=== PATIENT | male | born 1990 | race Two or more races ===

== ENCOUNTER 2016-09-24 19:00 | Inpatient (IN) | payer MEDICAID ==
[2016-09-24 19:46] VITALS: BP 99/66
[2016-09-24] MEDS ORDERED: Maalox 30 mL Cup PO PRN (20:05)
[2016-09-24] MEDS ORDERED: Albuterol Nebulizer 2.5mg/3mL IH PRN (20:05)
[2016-09-24] MEDS ORDERED: guaiFENesin 200 MG/10 ML UDC PO PRN (20:07)
[2016-09-24] MEDS: Sodium Chloride 0.9% 1,000 ML IV SCH (20:30)
[2016-09-24 20:31] LABS: HEMOGLOBIN 12.7 gm/dL (13.2-17.3); MEAN CELL VOLUME 87.6 fl (80-99); MEAN CORPUSCULAR HEMOGLOBIN 30.8 pg (26.0-30.0); MEAN CORPUSCULAR HGB CONC 35.1 pg (28.0-36.0); MEAN PLATELET VOLUME 7.9 fl; PLATELET COUNT 206 Th/cmm (150-400); RED BLOOD COUNT 4.11 Mil/cmm (4.30-5.70); RED CELL DISTRIBUTION WIDTH 12.4 % (11.5-20.0)
[2016-09-24] MEDS: Levofloxacin 500mg/100mL 500 MG/100 ML BAG IV SCH (20:33)
[2016-09-24 20:50] LABS: ALB/GLOB RATIO 1.3 (1.0-1.8); ALKALINE PHOSPHATASE 66 U/L (34-104); BILIRUBIN,TOTAL 0.6 mg/dL (0.3-1.0); BUN - UREA NITROGEN 17 mg/dL (7-25); BUN/CREATININE RATIO 21.3; CALCIUM SERUM 7.8 mg/dL (8.6-10.3); CARBON DIOXIDE 20.3 mEq/L (21.0-31.0); CHLORIDE 106 mEq/L (98-107); CREATININE - SERUM 0.8 mg/dL (0.7-1.3); GLUCOSE 166 mg/dL (70-105); MAGNESIUM 1.8 mg/dL (1.9-2.7); PHOSPHOROUS 2.7 mg/dL (2.5-5.0); POTASSIUM SERUM 3.3 mEq/L (3.5-5.1); SGOT 14 U/L (13-39); SGPT/ALT 15 U/L (7-52); SODIUM SERUM 133 mEq/L (136-145)
[2016-09-24 21:00] LABS: WHITE BLOOD COUNT 12.2 Th/cmm (4.8-10.8)
[2016-09-24 21:16] LABS: BAND NEUTROPHILE 2 % (0-10); EOSINOPHIL 2 % (0-5); NEUTROPHILS 62 % (40-80); PLATELET ESTIMATE ADEQUATE (NORMAL); PLATELET MORPHOLOGY NORMAL (NORMAL); TOTAL CELLS COUNTED 100
[2016-09-24 21:25] LABS: TSH 1.75 uIU/ml (0.34-5.60)
[2016-09-24] MEDS ORDERED: GLUCAGON HCl 1 MG KIT IM PRN (23:11)
[2016-09-24] MEDS ORDERED: Dextrose 50% 50 mL Abboject IVP PRN (23:11)
[2016-09-24] MEDS ORDERED: Potassium Chloride 40 MEQ, Lidocaine 1% 20mL Vial 25 MG in Sodium Chloride 0.9% 250 ML IV ONE (23:42)
[2016-09-24 23:44] LABS: URINE COLOR YELLOW; URINE GLUCOSE (UA) 500 mg/dL (NEGATIVE)
[2016-09-24 23:45] LABS: URINE BILIRUBIN MODERATE (NEGATIVE); URINE BLOOD NEGATIVE (NEGATIVE); URINE KETONE >=80 mg/dL (NEGATIVE); URINE PROTEIN 30 mg/dL (NEGATIVE); URINE UROBILINOGEN 0.2 E.U./dL (0.2 - 1.0)
[2016-09-24 23:46] LABS: URINE BACTERIA NONE SEEN /hpf (NONE SEEN); URINE EPITHELIAL CELLS NONE SEEN /lpf (FEW); URINE RBC NONE SEEN /hpf (0-5); URINE WBC NONE SEEN /hpf (0-5)
[2016-09-25] MEDS ORDERED: KCL 20mEq/100mL Premix 40 MEQ/200 ML PIGGYBACK IV ONE (01:07)
[2016-09-25 04:49] LABS: % BASOPHILS 0.5 % (0.0-2.0); % EOSINOPHILS 1.8 % (0.0-5.0); % LYMPHOCYTES 19.3 % (20.0-50.0); % MONOCYTES 3.6 % (2.0-10.0); % NEUTROPHILS 74.8 % (40.0-80.0); HEMATOCRIT 39.3 % (39.0-49.0); HEMOGLOBIN 13.6 gm/dL (13.2-17.3); MEAN CELL VOLUME 88.4 fl (80-99); MEAN CORPUSCULAR HEMOGLOBIN 30.5 pg (26.0-30.0); MEAN CORPUSCULAR HGB CONC 34.5 pg (28.0-36.0); MEAN PLATELET VOLUME 7.6 fl; NEUTROPHILE ABSOLUTE 8.7 Th/cmm (1.8-8.0); PLATELET COUNT 226 Th/cmm (150-400); RED BLOOD COUNT 4.45 Mil/cmm (4.30-5.70); RED CELL DISTRIBUTION WIDTH 12.4 % (11.5-20.0); WHITE BLOOD COUNT 11.6 Th/cmm (4.8-10.8)
[2016-09-25 05:14] LABS: ANION GAP 20.1 (7.0-16.0); BUN - UREA NITROGEN 18 mg/dL (7-25); CALCIUM SERUM 8.6 mg/dL (8.6-10.3); CARBON DIOXIDE 13.5 mEq/L (21.0-31.0); CHLORIDE 100 mEq/L (98-107); CREATININE - SERUM 0.9 mg/dL (0.7-1.3); GLUCOSE 449 mg/dL (70-105); MAGNESIUM 1.8 mg/dL (1.9-2.7); POTASSIUM SERUM 4.6 mEq/L (3.5-5.1); SODIUM SERUM 129 mEq/L (136-145)
[2016-09-25] MEDS: Sodium Chloride 0.9% 1,000 ML IV SCH ×3 (05:29→20:40)
[2016-09-25] MEDS: INSULIN ASPART, RECOMBINANT 100 UNITS/ML SUBQ SCH ×5 (05:37→20:29)
[2016-09-25] MEDS ORDERED: INSULIN 70/30 100 UNITS/ML SUBQ SCH (07:30)
--- NOTE | 2016-09-25 09:26 | Diagnostic Imaging Report ---
CHEST X-RAY: AP view INDICATION: Pneumonia COMPARISON: None FINDINGS: There is no focal consolidation or pleural effusions The heart is normal in size. The osseous structures demonstrate no acute abnormalities. IMPRESSION: No acute cardiopulmonary disease.
--- NOTE | 2016-09-25 12:08 | Internal Medicine Prog Note ---
Internal Medicine Subjective - Subjective Service Date: 09/25/16 ([id number]) Internal Medicine Objective - Results Result Diagrams: 09/25/16 04:40 09/25/16 04:40 Recent Labs: Laboratory Last Values WBC 11.6 Th/cmm (4.8-10.8) H 09/25/16 04:40 RBC 4.45 Mil/cmm (4.30-5.70) 09/25/16 04:40 Hgb 13.6 gm/dL (13.2-17.3) 09/25/16 04:40 Hct 39.3 % (39.0-49.0) 09/25/16 04:40 MCV 88.4 fl (80-99) 09/25/16 04:40 MCH 30.5 pg (26.0-30.0) H 09/25/16 04:40 MCHC Differential 34.5 pg (28.0-36.0) 09/25/16 04:40 RDW 12.4 % (11.5-20.0) 09/25/16 04:40 Plt Count 226 Th/cmm (150-400) 09/25/16 04:40 MPV 7.6 fl 09/25/16 04:40 Neutrophils % 74.8 % (40.0-80.0) 09/25/16 04:40 Band Neutrophils % 2 % (0-10) 09/24/16 20:19 Lymphocytes % 19.3 % (20.0-50.0) L 09/25/16 04:40 Monocytes % 3.6 % (2.0-10.0) 09/25/16 04:40 Eosinophils % 1.8 % (0.0-5.0) 09/25/16 04:40 Basophils % 0.5 % (0.0-2.0) 09/25/16 04:40 Neutrophils (Manual) 62 % (40-80) 09/24/16 20:19 Lymphocytes 31 % (20-50) 09/24/16 20:19 Monocytes 3 % (2-10) 09/24/16 20:19 Eosinophils 2 % (0-5) 09/24/16 20:19 Platelet Estimate ADEQUATE (NORMAL) 09/24/16 20:19 Platelet Morphology NORMAL (NORMAL) 09/24/16 20:19 RBC Morph Micro Appear NORMAL (NORMAL) 09/24/16 20:19 Sodium 129 mEq/L (136-145) L 09/25/16 04:40 Potassium 4.6 mEq/L (3.5-5.1) 09/25/16 04:40 Chloride 100 mEq/L (98-107) 09/25/16 04:40 Carbon Dioxide 13.5 mEq/L (21.0-31.0) L 09/25/16 04:40 Anion Gap 20.1 (7.0-16.0) H 09/25/16 04:40 BUN 18 mg/dL (7-25) 09/25/16 04:40 Creatinine 0.9 mg/dL (0.7-1.3) 09/25/16 04:40 Est GFR ( Amer) > 60.0 ml/min (>90) 09/25/16 04:40 Est GFR (Non-Af Amer) > 60.0 ml/min 09/25/16 04:40 BUN/Creatinine Ratio 20.0 09/25/16 04:40 Glucose 449 mg/dL (70-105) H 09/25/16 04:40 POC Glucose 332 MG/DL (70 - 105) H 09/25/16 11:15 Calcium 8.6 mg/dL (8.6-10.3) 09/25/16 04:40 Phosphorus 2.7 mg/dL (2.5-5.0) 09/24/16 20:19 Magnesium 1.8 mg/dL (1.9-2.7) L 09/25/16 04:40 Total Bilirubin 0.6 mg/dL (0.3-1.0) 09/24/16 20:19 AST 14 U/L (13-39) 09/24/16 20:19 ALT 15 U/L (7-52) 09/24/16 20:19 Alkaline Phosphatase 66 U/L (34-104) 09/24/16 20:19 Ammonia 34 umol/L (16-53) 09/24/16 20:19 Total Protein 5.6 gm/dL (6.0-8.3) L 09/24/16 20:19 Albumin 3.2 gm/dL (4.2-5.5) L 09/24/16 20:19 Globulin 2.4 gm/dL 09/24/16 20:19 Albumin/Globulin Ratio 1.3 (1.0-1.8) 09/24/16 20:19 TSH 1.75 uIU/ml (0.34-5.60) 09/24/16 20:19 Urine Source CLEAN C 09/24/16 21:45 Urine Color YELLOW 09/24/16 21:45 Urine Clarity CLEAR (CLEAR) 09/24/16 21:45 Urine pH 6.0 09/24/16 21:45 Ur Specific [place] 1.030 (1.005-1.030) 09/24/16 21:45 Urine Protein 30 mg/dL (NEGATIVE) H 09/24/16 21:45 Urine Glucose (UA) 500 mg/dL (NEGATIVE) H 09/24/16 21:45 Urine Ketones >=80 mg/dL (NEGATIVE) H 09/24/16 21:45 Urine Blood NEGATIVE (NEGATIVE) 09/24/16 21:45 Urine Nitrate NEGATIVE (NEGATIVE) 09/24/16 21:45 Urine Bilirubin MODERATE (NEGATIVE) H 09/24/16 21:45 Urine Urobilinogen 0.2 E.U./dL (0.2 - 1.0) 09/24/16 21:45 Ur Leukocyte Esterase NEGATIVE (NEGATIVE) 09/24/16 21:45 Urine RBC NONE SEEN /hpf (0-5) 09/24/16 21:45 Urine WBC NONE SEEN /hpf (0-5) 09/24/16 21:45 Ur Epithelial Cells NONE SEEN /lpf (FEW) 09/24/16 21:45 Urine Bacteria NONE SEEN /hpf (NONE SEEN) 09/24/16 21:45 - Physical Exam Vitals and I&O: Vital Signs Temp 98.5 F 09/25/16 08:00 Pulse 83 09/25/16 09:00 Resp 12 09/25/16 09:00 BP 90/50 09/25/16 09:00 Pulse Ox 97 09/25/16 09:00 Intake & Output 09/24/16 09/25/16 09/25/16 18:59 06:59 18:59 Intake Total 1900 200 Output Total 1400 800 Balance 500 -600 Weight (lbs) 115 lb Intake: Intake, IV Amount 1100 Levofloxacin 500mg/100mL 100 500 mg In 100 ml @ 100 mls/hr IV Q24HR [facility] Rx#: [id number] Sodium Chloride 0.9% 1, 1000 000 ml @ 125 mls/hr IV . Q8H [facility] Rx#:[id number] Oral 800 200 Output: Urine 1400 800 Other: # Voids 4 0 # Bowel Movements 0 Stool Characteristics Soft Formed Active Medications: Current Medications Acetaminophen (Tylenol) 650 mg PO Q4HR PRN PRN Reason: Pain or Fever >101 Stop: 11/23/16 20:06 Al Hydrox/Mg Hydrox/Simethicone (Maalox) 30 ml PO Q6HR PRN PRN Reason: Constipation Stop: 11/23/16 20:04 Albuterol Sulfate (Albuterol 2.5mg/3ml Neb Ud) 2.5 mg IH Q2HR PRN PRN Reason: Shortness of Breath or Wheeze Stop: 11/23/16 20:04 Dextrose (D50w) 50 ml IVP PRN PRN PRN Reason: Blood Glucose less than 70 Stop: 11/23/16 23:10 Dextrose (Glutose 40%) 18.75 gm PO PRN PRN PRN Reason: Blood Glucose less than 70 Stop: 11/23/16 23:10 Famotidine (Pepcid) 20 mg IVP Q12H [facility] Stop: 11/23/16 20:14 Last Admin: 09/25/16 08:36 Dose: 20 mg Glucagon (Glucagen) 1 mg IM PRN PRN PRN Reason: Blood Glucose less than 70 Stop: 11/23/16 23:10 Guaifenesin (Robitussin) 200 mg PO Q4HR PRN PRN Reason: Cough or Congestion Stop: 11/23/16 20:06 Heparin Sodium (Porcine) (Heparin) 5,000 units SUBQ Q12HR [facility] Stop: 11/23/16 20:59 Last Admin: 09/25/16 08:42 Dose: Not Given Levofloxacin (Levaquin Pb) 500 mg in 100 mls @ 100 mls/hr IV Q24HR [facility] Stop: 11/23/16 20:59 Last Infusion: 09/24/16 21:30 Dose: Infused Sodium Chloride (Nacl 0.9%) 1,000 mls @ 125 mls/hr IV .Q8H [facility] Stop: 11/23/16 20:14 Last Admin: 09/25/16 05:29 Dose: 125 mls/hr Insulin Aspart (Novolog) 0 units SUBQ ACHS [facility] PRN Reason: Protocol Stop: 11/24/16 05:59 Last Admin: 09/25/16 08:28 Dose: Not Given Insulin Human Isoph/Insulin Regular (Novolin 70/30) 10 units SUBQ BIDAC [facility]AVIAN PRN Reason: Protocol Stop: 11/24/16 07:29 Last Admin: 09/25/16 08:32 Dose: 10 units Ondansetron HCl (Zofran) 4 mg IV Q8H PRN PRN Reason: Nausea / Vomiting Stop: 11/23/16 20:06 Zolpidem Tartrate (Ambien) 10 mg PO HS PRN PRN Reason: Insomnia Stop: 11/23/16 20:04 Internal Medicine Assmt/Plan - Assessment Assessment: DKA CHEST PAIN HYPONATREMIA
[2016-09-25] MEDS ORDERED: Mag Sulfate 2gm/50mL Premix 2 GM/50 ML BAG IV ONE (13:01)
--- NOTE | 2016-09-25 13:08 | Admit Criteria Form ---
Admit Criteria Forms - Admit Criteria Diagnosis: DIABETES Clinical Indications for Admission to Inpatient Care (Place 'X' for any and all applicable criteria): Admission is indicated by presence of ALL (if I & II) or ANY ONE (if III or IV) of the following (1)(2)(3)(4): [X ]I. Diabetes is uncontrolled as indicated by ANY ONE of the following: [ ]a) Diabetic ketoacidosis as indicated by ALL of the following (8): [ ]i) Hyperglycemia (eg, plasma glucose greater than 200 mg/ dL (11.1 mmol/L)) [ ]ii) Acidosis (eg, arterial pH less than 7.30, serum bicarbonate level less than 15 mEq/L (mmol/L)) [ ]iii) Moderate ketonuria or ketonemia [ ]b) Hyperglycemic hyperosmolar state as indicated by ALL of the following(9)(10): [ ]i) Neurologic dysfunction (eg, stupor, coma, hemiparesis , seizure)(13) [ ]ii) Plasma glucose greater than 600 mg/dL (33.3 mmol/L) [ ]iii) Serum osmolality greater than 320 mOsm/kg (mmol/kg) [X ]c) Severe signs or symptoms secondary to hyperglycemia indicated by ANY ONE of the following: [ ]i) Altered mental status(10) [ ]ii) Significant hypovolemia or dehydration [ ]iii) Intractable nausea or vomiting [ ]iv) Unexplained fever or severe infection [X]v) Severe electrolyte abnormality (eg, hypokalemia, hyperkalemia, hypernatremia) [X ]II. Management at other levels of care (Also use Diabetes: Observation Care as appropriate) is not feasible because of ANY ONE of the following: [ ]a) Condition was not adequately corrected with treatment at other levels of care. [X]b) Treatment at other levels of care is not appropriate because of condition severity (eg, hyperosmolar coma). [ ]III. Contraindications and/or Inappropriate clinical situations for Observational Care in patients with Diabetes, when ANY ONE of the following is required: [ ]a) Patient require specific diagnostic workup or therapeutic intervention 22 [ ]b) Patient with abnormal vital signs or altered mental status 23 [ ]IV. General contraindications and/or Inappropriate clinical situations for Observational Care in patients with Diabetes, when ANY ONE of the following is required: [ ]a) Prediction of prolongation of LOS based on ANY ONE of the following may be considered as a contraindication for observational care 2, 3, 4, 5, 6, 7, 8, 9, 10, 11 [ ]i) Age > 65 yrs. [ ]ii) Patient arriving by ambulance [ ]iii) Patient with high acuity [ ]iv) Patient requiring vital sign monitoring [ ]v) Patient on IV medication [ ]b) Systolic blood pressures 180mmHg 3,12 [ ]c) Patient with altered mental status including delirium and other alteration of consciousness, (3) [ ]d) Patient whose discharge disposition will be to a snf home or rehabilitation home should not be managed in Emergency Department Observation Unit. CMS rule requires 3 days hospital stay before such placement.3,13 [ ]e) Patient with failure to thrive due to broad array of etiologies 3,16,17 [ ]f) Inability to ambulate 3,14 Extended stay beyond goal length of stay may be needed for(3)(20): [ ]a) Treatment of precipitating causes [ ]b) Development of hypoglycemia [ ]c) Complications of treatment [ ]d) Complications of decompensated diabetes (eg, acute gastric dilatation, persistent metabolic or neurologic derangement) [ ]e) Active Comorbidities [ ]f) Older patients( 65 years or older) The original [facility] content created by [employer] has been revised. The portions of the content which have been revised are identified through the use of italic text or in bold,and [facility] has neither reviewed nor approved the modified material. All other unmodified content is copyright [facility]. Please see references footnoted in the original [facility] edition 2016 Admit Criteria Met?: Yes
--- NOTE | 2016-09-25 15:28 | History & Physical ---
CHIEF COMPLAINT: Chest pain and elevated glucose level. HISTORY OF PRESENT ILLNESS: This is a 26-year-old male who was a direct admission from [facility]. According to the patient, he has a 1-day history of chest pain associated with sore throat. Chest pain is nonradiating and is more centered. The patient states that he had a bit of shortness of breath and also when the patient checked his blood sugar at home, it did not give a specific number, just said it was high. The patient states that he checks his glucose levels 3 times a day and he was experiencing polyuria and polydipsia. He said having polyuria, polydipsia is nothing new and he has been ____ having the following symptoms. The patient's friend to come to [facility]. Due to insurance purposes and continuation of care, the patient is now here admitted to [facility] ICU. PAST MEDICAL HISTORY: Type 2 diabetes. The patient stated that he was diagnosed with asthma, but he was never treated for asthma. The patient was diagnosed with type 1 diabetes since March 2015. PAST SURGICAL HISTORY: None per patient. SOCIAL HISTORY: Occasional tobacco smoker, occasional alcohol, denies any illicit drug usage. REVIEW OF SYSTEMS: GENERAL: Denies any fevers, any chills. CARDIOVASCULAR: Denies any chest pain at this time. RESPIRATORY: Denies any shortness of breath. GASTROINTESTINAL: Denies any nausea, vomiting, abdominal pain. GENITOURINARY: Denies any dysuria. MUSCULOSKELETAL: Denies any weakness. All other systems are reviewed by me and are negative. PHYSICAL EXAMINATION: GENERAL: The patient is well developed, well nourished, no apparent distress. VITAL SIGNS: Temperature 98.5, heart rate 92, blood pressure 102/65, respirations 13, O2 sat 98%. HEENT: Head; normocephalic, atraumatic. NECK: Supple. No mass. LUNGS: Clear bilaterally. HEART: Regular rhythm. ABDOMEN: Soft, nontender, nondistended. LABORATORY DATA: WBC 11.6, H and H 13.6 and 39.3, platelets 226. Sodium 129, potassium 4.6, carbon dioxide 13.5, BUN 18, creatinine 0.9, glucose level is at 428. The patient has had a urinalysis done, urine ketones is at 80, protein in urine is at 30, urine glucose is 500. The patient had a chest x-ray done and the impression is, no acute cardiopulmonary disease. ASSESSMENT: Diabetic ketoacidosis, chest pain, hyponatremia. PLAN: The patient to be admitted to the ICU unit. The patient will have a consultation with Cardiology and also Dr. Hoffman. We will get hemoglobin A1c level, waiting for results. The patient will be placed on IV fluids of normal saline. The patient will be placed on IV antibiotics 500 mg IV q. 24. We will monitor patient's electrolytes level and monitor patient for any signs and symptoms of hypo and hyperglycemia. JOB# [id number]
[2016-09-25] MEDS: INSULIN 70/30 100 UNITS/ML SUBQ SCH (17:52)
--- NOTE | 2016-09-25 18:29 | History & Physical ---
REFERRING PHYSICIAN: Dr. Eusebio Ballesteros. History reviewed and patient examined. HISTORY OF PRESENT ILLNESS: The patient is a 26-year-old man with 2 year history of insulin-dependent diabetes mellitus. He presented to the Emergency Room at [place] last night with a sensation of discomfort in the central chest of 1 day duration reported to become more severe with eating or taking a deep breath. After evaluation in the Emergency Room, he was transferred to [facility] for further care. There is no history of heart disease. There is no history of hypertension. MEDICATIONS: Insulin. ALLERGIES: There are no known drug allergies. SOCIAL HISTORY: He is a cigarette smoker. He has had no surgeries. Chest discomfort has abated, but not resolved. PHYSICAL EXAMINATION: VITAL SIGNS: Heart rate 80, blood pressure 120/80. GENERAL: The patient is alert and oriented. SKIN: Warm and dry. Peripheral pulses are of good quality and bilaterally equal. NECK: No carotid bruit is heard. RESPIRATORY: There is good air exchange bilaterally. CHEST: Lungs are clear to auscultation. Precordium is quiet without lift, heave, thrill or bulge. No murmur, click or gallop is heard. ABDOMEN: Soft and nontender. Bowel sounds are normal. There is no edema. LABORATORY DATA: Electrocardiogram is pending. Chest x-ray is reported by radiologist to be unremarkable. LABORATORY DATA: Glucose at [place] [facility] was in the range of 400. Subsequently, glucose here has been as low as 174 and as high as 428, BUN 18, creatinine 0.9, potassium 4.6, sodium 129. Hemoglobin 13.6, WBC 11.6, platelets 226. ASSESSMENT: 1. Atypical chest pain. 2. Recent bronchitis with nonproductive cough. 3. Insulin-dependent diabetes mellitus -- poorly controlled. 4. Possible gastroesophageal reflux disease. COMMENTS: Concur with present regimen. EKG is pending. Serial troponin levels are pending. The patient has been started on famotidine. Thank you for asking me to participate in the care of your patient. JOB# [id number]
[2016-09-25] MEDS: Levofloxacin 500mg/100mL 500 MG/100 ML BAG IV SCH (20:28)
[2016-09-26 05:38] LABS: % BASOPHILS 0.8 % (0.0-2.0); % EOSINOPHILS 2.1 % (0.0-5.0); % LYMPHOCYTES 23.6 % (20.0-50.0); % NEUTROPHILS 66.5 % (40.0-80.0); MEAN CELL VOLUME 88.6 fl (80-99); MEAN CORPUSCULAR HEMOGLOBIN 29.8 pg (26.0-30.0); MEAN CORPUSCULAR HGB CONC 33.6 pg (28.0-36.0); MEAN PLATELET VOLUME 8.2 fl; NEUTROPHILE ABSOLUTE 5.2 Th/cmm (1.8-8.0); RED BLOOD COUNT 3.89 Mil/cmm (4.30-5.70); RED CELL DISTRIBUTION WIDTH 12.5 % (11.5-20.0)
[2016-09-26 05:43] LABS: BUN - UREA NITROGEN 10 mg/dL (7-25); BUN/CREATININE RATIO 16.7; CALCIUM SERUM 7.9 mg/dL (8.6-10.3); CARBON DIOXIDE 23.4 mEq/L (21.0-31.0); CHLORIDE 109 mEq/L (98-107); CREATININE - SERUM 0.6 mg/dL (0.7-1.3); GLUCOSE 101 mg/dL (70-105); MAGNESIUM 1.9 mg/dL (1.9-2.7); POTASSIUM SERUM 3.4 mEq/L (3.5-5.1); SODIUM SERUM 138 mEq/L (136-145)
[2016-09-26 05:44] LABS: HEMATOCRIT 34.4 % (39.0-49.0); HEMOGLOBIN 11.6 gm/dL (13.2-17.3); PLATELET COUNT 175 Th/cmm (150-400); WHITE BLOOD COUNT 7.8 Th/cmm (4.8-10.8)
[2016-09-26] MEDS: INSULIN ASPART, RECOMBINANT 100 UNITS/ML SUBQ SCH ×2 (07:29→21:59)
[2016-09-26] MEDS: Sodium Chloride 0.9% 1,000 ML IV SCH (07:43)
[2016-09-26] MEDS: INSULIN 70/30 100 UNITS/ML SUBQ SCH (08:18)
[2016-09-26] MEDS ORDERED: Potassium Chloride 20 mEq ER Tab PO ONE (08:48)
--- NOTE | 2016-09-26 11:29 | Internal Medicine Prog Note ---
Internal Medicine Subjective - Subjective Service Date: 09/26/16 (awake, alert, glucose level improving. denies any chest pain) Patient seen and examined:: with staff Patient is:: awake Per staff patient is:: no adverse event Internal Medicine Objective - Results Result Diagrams: 09/26/16 04:50 09/26/16 04:50 Recent Labs: Laboratory Last Values WBC 7.8 Th/cmm (4.8-10.8) D 09/26/16 04:50 RBC 3.89 Mil/cmm (4.30-5.70) L 09/26/16 04:50 Hgb 11.6 gm/dL (13.2-17.3) L D 09/26/16 04:50 Hct 34.4 % (39.0-49.0) L D 09/26/16 04:50 MCV 88.6 fl (80-99) 09/26/16 04:50 MCH 29.8 pg (26.0-30.0) 09/26/16 04:50 MCHC Differential 33.6 pg (28.0-36.0) 09/26/16 04:50 RDW 12.5 % (11.5-20.0) 09/26/16 04:50 Plt Count 175 Th/cmm (150-400) D 09/26/16 04:50 MPV 8.2 fl 09/26/16 04:50 Neutrophils % 66.5 % (40.0-80.0) 09/26/16 04:50 Band Neutrophils % 2 % (0-10) 09/24/16 20:19 Lymphocytes % 23.6 % (20.0-50.0) 09/26/16 04:50 Monocytes % 7.0 % (2.0-10.0) 09/26/16 04:50 Eosinophils % 2.1 % (0.0-5.0) 09/26/16 04:50 Basophils % 0.8 % (0.0-2.0) 09/26/16 04:50 Neutrophils (Manual) 62 % (40-80) 09/24/16 20:19 Lymphocytes 31 % (20-50) 09/24/16 20:19 Monocytes 3 % (2-10) 09/24/16 20:19 Eosinophils 2 % (0-5) 09/24/16 20:19 Platelet Estimate ADEQUATE (NORMAL) 09/24/16 20:19 Platelet Morphology NORMAL (NORMAL) 09/24/16 20:19 RBC Morph Micro Appear NORMAL (NORMAL) 09/24/16 20:19 Sodium 138 mEq/L (136-145) 09/26/16 04:50 Potassium 3.4 mEq/L (3.5-5.1) L 09/26/16 04:50 Chloride 109 mEq/L (98-107) H 09/26/16 04:50 Carbon Dioxide 23.4 mEq/L (21.0-31.0) 09/26/16 04:50 Anion Gap 9.0 (7.0-16.0) 09/26/16 04:50 BUN 10 mg/dL (7-25) 09/26/16 04:50 Creatinine 0.6 mg/dL (0.7-1.3) L 09/26/16 04:50 Est GFR ( Amer) > 60.0 ml/min (>90) 09/26/16 04:50 Est GFR (Non-Af Amer) > 60.0 ml/min 09/26/16 04:50 BUN/Creatinine Ratio 16.7 09/26/16 04:50 Glucose 101 mg/dL (70-105) 09/26/16 04:50 POC Glucose 199 MG/DL (70 - 105) H 09/26/16 11:17 Calcium 7.9 mg/dL (8.6-10.3) L 09/26/16 04:50 Phosphorus 2.7 mg/dL (2.5-5.0) 09/24/16 20:19 Magnesium 1.9 mg/dL (1.9-2.7) 09/26/16 04:50 Total Bilirubin 0.6 mg/dL (0.3-1.0) 09/24/16 20:19 AST 14 U/L (13-39) 09/24/16 20:19 ALT 15 U/L (7-52) 09/24/16 20:19 Alkaline Phosphatase 66 U/L (34-104) 09/24/16 20:19 Ammonia 34 umol/L (16-53) 09/24/16 20:19 Troponin I < 0.01 ng/mL (0.01-0.05) L 09/25/16 20:15 Total Protein 5.6 gm/dL (6.0-8.3) L 09/24/16 20:19 Albumin 3.2 gm/dL (4.2-5.5) L 09/24/16 20:19 Globulin 2.4 gm/dL 09/24/16 20:19 Albumin/Globulin Ratio 1.3 (1.0-1.8) 09/24/16 20:19 Vitamin B12 733 pg/mL (211-946) 09/24/16 20:19 Folic Acid 8.0 ng/mL (>3.0) 09/24/16 20:19 TSH 1.75 uIU/ml (0.34-5.60) 09/24/16 20:19 Urine Source CLEAN C 09/24/16 21:45 Urine Color YELLOW 09/24/16 21:45 Urine Clarity CLEAR (CLEAR) 09/24/16 21:45 Urine pH 6.0 09/24/16 21:45 Ur Specific [place] 1.030 (1.005-1.030) 09/24/16 21:45 Urine Protein 30 mg/dL (NEGATIVE) H 09/24/16 21:45 Urine Glucose (UA) 500 mg/dL (NEGATIVE) H 09/24/16 21:45 Urine Ketones >=80 mg/dL (NEGATIVE) H 09/24/16 21:45 Urine Blood NEGATIVE (NEGATIVE) 09/24/16 21:45 Urine Nitrate NEGATIVE (NEGATIVE) 09/24/16 21:45 Urine Bilirubin MODERATE (NEGATIVE) H 09/24/16 21:45 Urine Urobilinogen 0.2 E.U./dL (0.2 - 1.0) 09/24/16 21:45 Ur Leukocyte Esterase NEGATIVE (NEGATIVE) 09/24/16 21:45 Urine RBC NONE SEEN /hpf (0-5) 09/24/16 21:45 Urine WBC NONE SEEN /hpf (0-5) 09/24/16 21:45 Ur Epithelial Cells NONE SEEN /lpf (FEW) 09/24/16 21:45 Urine Bacteria NONE SEEN /hpf (NONE SEEN) 09/24/16 21:45 Serum Ketones MODERATE (NEGATIVE) H 09/26/16 04:50 - Physical Exam Vitals and I&O: Vital Signs Temp 97.6 F 09/26/16 08:00 Pulse 67 09/26/16 10:00 Resp 14 09/26/16 10:00 BP 97/65 09/26/16 10:00 Pulse Ox 99 09/26/16 10:00 Intake & Output 09/25/16 09/26/16 09/26/16 18:59 06:59 18:59 Intake Total 2556.25 2000 Output Total 800 Balance 1756.25 2000 Intake: Intake, IV Amount 856.25 2000 Sodium Chloride 0.9% 1, 856.25 2000 000 ml @ 125 mls/hr IV . Q8H [facility] Rx#:[id number] Oral 1700 Output: Urine 800 Other: # Voids 4 Active Medications: Current Medications Acetaminophen (Tylenol) 650 mg PO Q4HR PRN PRN Reason: Pain or Fever >101 Stop: 11/23/16 20:06 Last Admin: 09/26/16 08:41 Dose: 650 mg Al Hydrox/Mg Hydrox/Simethicone (Maalox) 30 ml PO Q6HR PRN PRN Reason: Constipation Stop: 11/23/16 20:04 Albuterol Sulfate (Albuterol 2.5mg/3ml Neb Ud) 2.5 mg IH Q2HR PRN PRN Reason: Shortness of Breath or Wheeze Stop: 11/23/16 20:04 Dextrose (D50w) 50 ml IVP PRN PRN PRN Reason: Blood Glucose less than 70 Stop: 11/23/16 23:10 Dextrose (Glutose 40%) 18.75 gm PO PRN PRN PRN Reason: Blood Glucose less than 70 Stop: 11/23/16 23:10 Famotidine (Pepcid) 20 mg IVP Q12H [facility] Stop: 11/23/16 20:14 Last Admin: 09/26/16 08:20 Dose: 20 mg Glucagon (Glucagen) 1 mg IM PRN PRN PRN Reason: Blood Glucose less than 70 Stop: 11/23/16 23:10 Guaifenesin (Robitussin) 200 mg PO Q4HR PRN PRN Reason: Cough or Congestion Stop: 11/23/16 20:06 Heparin Sodium (Porcine) (Heparin) 5,000 units SUBQ Q12HR [facility] Stop: 11/23/16 20:59 Last Admin: 09/26/16 08:25 Dose: 5,000 units Levofloxacin (Levaquin Pb) 500 mg in 100 mls @ 100 mls/hr IV Q24HR [facility] Stop: 11/23/16 20:59 Last Admin: 09/25/16 20:28 Dose: 100 mls/hr Sodium Chloride (Nacl 0.9%) 1,000 mls @ 125 mls/hr IV .Q8H [facility] Stop: 11/23/16 20:14 Last Admin: 09/26/16 07:43 Dose: 125 mls/hr Insulin Aspart (Novolog) 0 units SUBQ ACHS [facility] PRN Reason: Protocol Stop: 11/24/16 05:59 Last Admin: 09/26/16 07:29 Dose: Not Given Insulin Human Isoph/Insulin Regular (Novolin 70/30) 18 units SUBQ BIDAC FAVIAN PRN Reason: Protocol Stop: 11/24/16 13:00 Last Admin: 09/26/16 08:18 Dose: 18 units Ondansetron HCl (Zofran) 4 mg IV Q8H PRN PRN Reason: Nausea / Vomiting Stop: 11/23/16 20:06 Zolpidem Tartrate (Ambien) 10 mg PO HS PRN PRN Reason: Insomnia Stop: 11/23/16 20:04 General: alert HEENT: NC/AT, PERRLA Neck: Supple Lungs: CTAB Cardiovascular: RRR, Normal S1, Normal S2, without murmur Abdomen: soft non-tender, non-distended Extremities: clear Internal Medicine Assmt/Plan - Assessment Assessment: DKA CHEST PAIN - resolved HYPONATREMIA- improved HYPOKALEMIA - Plan Plan: monitor lytes monitor glucose level downgrade patient to [facility] dc planning in am Nutritional Asmnt/Malnutr-PDOC - Dietary Evaluation Malnutrition Findings (Please click <Entered> for more info): Nutritional Asmnt/Malnutrition Start: 09/25/16 12: 49 Text: Status: Complete Freq: Document 09/25/16 12:49 [facility] (Rec: 09/25/16 13:12 [facility] [id number]) Nutritional Asmnt/Malnutrition Patient General Information Nutritional Screening Consult Diagnosis Per reason for visit, diabetic ketoacidosis Pertinent Medical Hx/Surgical Hx DM Subjective Information Nutrition Consult for BS 425 received and completed. Pt was awake and alert during time of visit; pt is a good historian. Pt appears thin but has a medium body frame. No muscle or fat depletion observed. RD attempted to measure wt via bedscale with GU[employer] Beard but there was a malfunctioning screen. Pt reports UBW 115#/52.3 kg but weighed 111#/50.3 kg at [place] . Pt reports being diagnosed with DM, possibly type 1, years ago after experiencing hyperemesis for 2 weeks. Pt knows sources of carbohydrates and how to manage diabetes, however, pt admits he is noncompliant at times. Pt administers insulin to self daily but administers above sliding scale due to recent hyperglycemia. Usual POC Glucose at home reads 150-250 mg/dl. Pt reports no recent changes to glycemic regimen or dietary habits recently. 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 Current Diet Order/ Nutrition Support CCHO-60 GM Patient / S.O Indicated Pertinent Medications Pepcid, Novolog, Novolin 70/30 , Levaquin, Zofran, NaCl 0.9% Pertinent Labs (09/24) Urine Protein 30H, Urine Glucose 500H, Urine Ketones > =80H (09/25) Na 129L (decreased), Glucose (fasting) 449H, POC Glucose 325H-428H, Mg 1.8L Nutritional Hx/Data Height 5 ft 9 in Height (Calculated Centimeters) 175.3 Current Weight (lbs) 110 lb 9.6 oz Weight (Calculated Kilograms) 50.2 Weight (Calculated Grams) 09863.3 Usual body Weight (lbs) 115 % Usual Body Weight 96 [place] Body Weight 160 % [place] Body Weight 69 Recent Weight Change Yes Weight Status Underweight GI Symptoms GI Symptoms None Food Allergies No Cultural/Ethnic/Cheondoism Belief No cultural or scientology preferences provided. Pt likes sweets. Usual diet at home Regular, frequent meals Skin Integrity/Comment: Carlos 20. Skin intact. Current %PO Good (75-100%) Estimated Nutritional Goals BEE in Kcals: Adj wt of IBW Calories/Kcals/Kg Based on IBW 72.7 kg due to underwt status Kcals Calculated 1161-2215 kcals/day (25-30 kcals/kg) Protein: Adj wt of IBW Protein g/kg: Based on IBW 72.7 kg due to underwt status Protein Calculated 58-73 gm/day (0.8-1 gm/kg) Fluid: ml 9233-9271 ml/day (1 ml/kcal) Nutritional Problem 2. Problem Problem Underweight related to Etiology possible inadequate oral intake or inconsistent intake with out of control blood glucose as evidenced by Signs/Symptoms: BMI 16.3 kg/m2 with body wt 50 .3 kg, recent wt loss of 4.4# (3.8% body wt). 1. Problem Problem Altered nutrition-related laboratory values related to Etiology possible diet noncompliance or lack of consistent education as evidenced by Signs/Symptoms: fasting glucose 449 mg/dl today, elevated POC Glucose, Urine Glucose 500H, Urine Ketones >=80H. Malnutrition Alert Interpretation of weight loss Non-Severe up to 5% in 1 month (mod) Is there a minimum of two criteria No selected? Query Text:Check all the applicable criteria. A minimum of two criteria are recommended for diagnosis of either severe or non-severe malnutrition. Malnutrition Related to Morbid Obesity Malnutrition related to morbid obesity No Intervention/Recommendation Recommendations by RD Dietary Education by RD1 Comments 1. Continue with current diet as it is adequate to meet estimated nutritional needs while promoting glycemic control. 2. RD educated pt on consistent carbohydrate diet for 6 small meals per day. Pt requested for only hand out. RD emphasized for consistent intake every 2-3 hours. Reinforcement needed. Pt would benefit from outpatient or discharge care/education. Expected Outcomes/Goals Expected Outcomes/Goals 1. Blood glucose will trend towards desired parameters. 2. Gradual wt change towards IBW. Physician Parameters for PEM Normal Weight % <75% (Severe) Body Mass Index (BMI) 16 - 17.9 (Moderate) Serum Albumin (g/dl) 3.1 - 3.4 (Mild) 09/25/16 13:11 Dietitian Notes by Jeanne Duarte Nutrition Note Nutrition Consult and Initial Nutrition Assessment completed by Jeanne Duarte on 09/25/16. Please refer to nutrition assessment under Patient Care tab of EMR. RN Kisha and Nurse Practitioner Anamika Larson aware education was completed. Nutrition Problems: 1. Altered nutrition-related laboratory values related to possible diet noncompliance or lack of consistent education as evidenced by fasting glucose 449 mg/dl today, elevated POC Glucose, Urine Glucose 500H, Urine Ketones >=80H. 2. Underweight related to possible inadequate oral intake or inconsistent intake with out of control blood glucose as evidenced by BMI 16.3 kg/m2 with body wt 50.3 kg, recent wt loss of 4.4# (3.8% body wt). Nutrition Interventions: 1. Continue with current diet as it is adequate to meet estimated nutritional needs while promoting glycemic control. 2. RD educated pt on consistent carbohydrate diet for 6 small meals per day. Pt requested for only hand out. RD emphasized for consistent intake every 2-3 hours. Reinforcement needed. Pt would benefit from outpatient or discharge care/ education. F/U in 2-3 days as High risk, 09/27-09/28. Initialized on 09/25/16 13:11 - END OF NOTE
[2016-09-26] MEDS ORDERED: Sodium Chloride 0.9% 1,000 ML IV SCH (13:18)
[2016-09-26] MEDS ORDERED: 0.9% NS w/40 mEq KCL 1,000 ML IV SCH (14:00)
[2016-09-26] MEDS: Levofloxacin 500mg/100mL 500 MG/100 ML BAG IV SCH (22:04)
[2016-09-27 05:22] LABS: % BASOPHILS 0.1 % (0.0-2.0); % EOSINOPHILS 3.5 % (0.0-5.0); % LYMPHOCYTES 27.2 % (20.0-50.0); % MONOCYTES 5.2 % (2.0-10.0); HEMATOCRIT 36.2 % (39.0-49.0); HEMOGLOBIN 12.4 gm/dL (13.2-17.3); MEAN CELL VOLUME 88.4 fl (80-99); MEAN CORPUSCULAR HEMOGLOBIN 30.4 pg (26.0-30.0); MEAN CORPUSCULAR HGB CONC 34.4 pg (28.0-36.0); MEAN PLATELET VOLUME 8.5 fl; NEUTROPHILE ABSOLUTE 4.8 Th/cmm (1.8-8.0); PLATELET COUNT 182 Th/cmm (150-400); RED BLOOD COUNT 4.09 Mil/cmm (4.30-5.70); RED CELL DISTRIBUTION WIDTH 12.4 % (11.5-20.0); WHITE BLOOD COUNT 7.6 Th/cmm (4.8-10.8)
[2016-09-27 05:31] LABS: ANION GAP 7.4 (7.0-16.0); BUN - UREA NITROGEN 12 mg/dL (7-25); BUN/CREATININE RATIO 17.1; CALCIUM SERUM 8.7 mg/dL (8.6-10.3); CARBON DIOXIDE 25.5 mEq/L (21.0-31.0); CHLORIDE 107 mEq/L (98-107); CREATININE - SERUM 0.7 mg/dL (0.7-1.3); GLUCOSE 191 mg/dL (70-105); POTASSIUM SERUM 3.9 mEq/L (3.5-5.1); SODIUM SERUM 136 mEq/L (136-145)
[2016-09-27] MEDS: INSULIN ASPART, RECOMBINANT 100 UNITS/ML SUBQ SCH ×2 (07:11→11:27)
[2016-09-27] MEDS: INSULIN 70/30 100 UNITS/ML SUBQ SCH (07:14)
[2016-09-27] MEDS ORDERED: Probiotic Screen MC PRN (10:30)
--- NOTE | 2016-09-27 11:49 | Internal Medicine Prog Note ---
Internal Medicine Subjective - Subjective Service Date: 09/27/16 (DC SUMMARY 14005) Internal Medicine Objective - Results Result Diagrams: 09/27/16 04:35 09/27/16 04:35 Recent Labs: Laboratory Last Values WBC 7.6 Th/cmm (4.8-10.8) 09/27/16 04:35 RBC 4.09 Mil/cmm (4.30-5.70) L 09/27/16 04:35 Hgb 12.4 gm/dL (13.2-17.3) L 09/27/16 04:35 Hct 36.2 % (39.0-49.0) L 09/27/16 04:35 MCV 88.4 fl (80-99) 09/27/16 04:35 MCH 30.4 pg (26.0-30.0) H 09/27/16 04:35 MCHC Differential 34.4 pg (28.0-36.0) 09/27/16 04:35 RDW 12.4 % (11.5-20.0) 09/27/16 04:35 Plt Count 182 Th/cmm (150-400) 09/27/16 04:35 MPV 8.5 fl 09/27/16 04:35 Neutrophils % 64.0 % (40.0-80.0) 09/27/16 04:35 Band Neutrophils % 2 % (0-10) 09/24/16 20:19 Lymphocytes % 27.2 % (20.0-50.0) 09/27/16 04:35 Monocytes % 5.2 % (2.0-10.0) 09/27/16 04:35 Eosinophils % 3.5 % (0.0-5.0) 09/27/16 04:35 Basophils % 0.1 % (0.0-2.0) 09/27/16 04:35 Neutrophils (Manual) 62 % (40-80) 09/24/16 20:19 Lymphocytes 31 % (20-50) 09/24/16 20:19 Monocytes 3 % (2-10) 09/24/16 20:19 Eosinophils 2 % (0-5) 09/24/16 20:19 Platelet Estimate ADEQUATE (NORMAL) 09/24/16 20:19 Platelet Morphology NORMAL (NORMAL) 09/24/16 20:19 RBC Morph Micro Appear NORMAL (NORMAL) 09/24/16 20:19 Sodium 136 mEq/L (136-145) 09/27/16 04:35 Potassium 3.9 mEq/L (3.5-5.1) 09/27/16 04:35 Chloride 107 mEq/L (98-107) 09/27/16 04:35 Carbon Dioxide 25.5 mEq/L (21.0-31.0) 09/27/16 04:35 Anion Gap 7.4 (7.0-16.0) 09/27/16 04:35 BUN 12 mg/dL (7-25) 09/27/16 04:35 Creatinine 0.7 mg/dL (0.7-1.3) 09/27/16 04:35 Est GFR ( Amer) > 60.0 ml/min (>90) 09/27/16 04:35 Est GFR (Non-Af Amer) > 60.0 ml/min 09/27/16 04:35 BUN/Creatinine Ratio 17.1 09/27/16 04:35 Glucose 191 mg/dL (70-105) H 09/27/16 04:35 POC Glucose 202 MG/DL (70 - 105) H 09/27/16 06:58 Hemoglobin A1c 15.4 09/24/16 20:19 Calcium 8.7 mg/dL (8.6-10.3) 09/27/16 04:35 Phosphorus 2.7 mg/dL (2.5-5.0) 09/24/16 20:19 Magnesium 1.9 mg/dL (1.9-2.7) 09/26/16 04:50 Total Bilirubin 0.6 mg/dL (0.3-1.0) 09/24/16 20:19 AST 14 U/L (13-39) 09/24/16 20:19 ALT 15 U/L (7-52) 09/24/16 20:19 Alkaline Phosphatase 66 U/L (34-104) 09/24/16 20:19 Ammonia 34 umol/L (16-53) 09/24/16 20:19 Troponin I < 0.01 ng/mL (0.01-0.05) L 09/25/16 20:15 Total Protein 5.6 gm/dL (6.0-8.3) L 09/24/16 20:19 Albumin 3.2 gm/dL (4.2-5.5) L 09/24/16 20:19 Globulin 2.4 gm/dL 09/24/16 20:19 Albumin/Globulin Ratio 1.3 (1.0-1.8) 09/24/16 20:19 Vitamin B12 733 pg/mL (211-946) 09/24/16 20:19 Folic Acid 8.0 ng/mL (>3.0) 09/24/16 20:19 TSH 1.75 uIU/ml (0.34-5.60) 09/24/16 20:19 Urine Source CLEAN C 09/24/16 21:45 Urine Color YELLOW 09/24/16 21:45 Urine Clarity CLEAR (CLEAR) 09/24/16 21:45 Urine pH 6.0 09/24/16 21:45 Ur Specific [place] 1.030 (1.005-1.030) 09/24/16 21:45 Urine Protein 30 mg/dL (NEGATIVE) H 09/24/16 21:45 Urine Glucose (UA) 500 mg/dL (NEGATIVE) H 09/24/16 21:45 Urine Ketones >=80 mg/dL (NEGATIVE) H 09/24/16 21:45 Urine Blood NEGATIVE (NEGATIVE) 09/24/16 21:45 Urine Nitrate NEGATIVE (NEGATIVE) 09/24/16 21:45 Urine Bilirubin MODERATE (NEGATIVE) H 09/24/16 21:45 Urine Urobilinogen 0.2 E.U./dL (0.2 - 1.0) 09/24/16 21:45 Ur Leukocyte Esterase NEGATIVE (NEGATIVE) 09/24/16 21:45 Urine RBC NONE SEEN /hpf (0-5) 09/24/16 21:45 Urine WBC NONE SEEN /hpf (0-5) 09/24/16 21:45 Ur Epithelial Cells NONE SEEN /lpf (FEW) 09/24/16 21:45 Urine Bacteria NONE SEEN /hpf (NONE SEEN) 09/24/16 21:45 Serum Ketones MODERATE (NEGATIVE) H 09/26/16 04:50 - Physical Exam Vitals and I&O: Vital Signs Temp 97.6 F 09/27/16 08:00 Pulse 75 09/27/16 08:00 Resp 20 09/27/16 08:00 BP 108/72 09/27/16 08:00 Pulse Ox 98 09/27/16 08:00 Intake & Output 09/26/16 09/27/16 09/27/16 18:59 06:59 18:59 Intake Total 1200 1400 450 Balance 1200 1400 450 Intake: Oral 1200 200 450 Other 1200 Other: # Voids 3 1 Active Medications: Current Medications Insulin Human Isoph/Insulin Regular (Novolin 70/30) 18 units SUBQ BIDAC [facility] PRN Reason: Protocol Stop: 11/24/16 13:00 Last Admin: 09/27/16 07:14 Dose: 18 units Nutritional Asmnt/Malnutr-PDOC - Dietary Evaluation Malnutrition Findings (Please click <Entered> for more info): Nutritional Asmnt/Malnutrition Start: 09/25/16 12: 49 Text: Status: Complete Freq: Document 09/25/16 12:49 [facility] (Rec: 09/25/16 13:12 [facility] [id number]) Nutritional Asmnt/Malnutrition Patient General Information Nutritional Screening Consult Diagnosis Per reason for visit, diabetic ketoacidosis Pertinent Medical Hx/Surgical Hx DM Subjective Information Nutrition Consult for BS 425 received and completed. Pt was awake and alert during time of visit; pt is a good historian. Pt appears thin but has a medium body frame. No muscle or fat depletion observed. RD attempted to measure wt via bedscale with [employer]ard but there was a malfunctioning screen. Pt reports UBW 115#/52.3 kg but weighed 111#/50.3 kg at [place] . Pt reports being diagnosed with DM, possibly type 1, years ago after experiencing hyperemesis for 2 weeks. Pt knows sources of carbohydrates and how to manage diabetes, however, pt admits he is noncompliant at times. Pt administers insulin to self daily but administers above sliding scale due to recent hyperglycemia. Usual POC Glucose at home reads 150-250 mg/dl. Pt reports no recent changes to glycemic regimen or dietary habits recently. 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 Current Diet Order/ Nutrition Support CCHO-60 GM Patient / S.O Indicated Pertinent Medications Pepcid, Novolog, Novolin 70/30 , Levaquin, Zofran, NaCl 0.9% Pertinent Labs (09/24) Urine Protein 30H, Urine Glucose 500H, Urine Ketones > =80H (09/25) Na 129L (decreased), Glucose (fasting) 449H, POC Glucose 325H-428H, Mg 1.8L Nutritional Hx/Data Height 5 ft 9 in Height (Calculated Centimeters) 175.3 Current Weight (lbs) 110 lb 9.6 oz Weight (Calculated Kilograms) 50.2 Weight (Calculated Grams) 38692.3 Usual body Weight (lbs) 115 % Usual Body Weight 96 [place] Body Weight 160 % [place] Body Weight 69 Recent Weight Change Yes Weight Status Underweight GI Symptoms GI Symptoms None Food Allergies No Cultural/Ethnic/Hoahaoism Belief No cultural or sikhism preferences provided. Pt likes sweets. Usual diet at home Regular, frequent meals Skin Integrity/Comment: [place] 20. Skin intact. Current %PO Good (75-100%) Estimated Nutritional Goals BEE in Kcals: Adj wt of IBW Calories/Kcals/Kg Based on IBW 72.7 kg due to underwt status Kcals Calculated 9073-8626 kcals/day (25-30 kcals/kg) Protein: Adj wt of IBW Protein g/kg: Based on IBW 72.7 kg due to underwt status Protein Calculated 58-73 gm/day (0.8-1 gm/kg) Fluid: ml 1288-8260 ml/day (1 ml/kcal) Nutritional Problem 2. Problem Problem Underweight related to Etiology possible inadequate oral intake or inconsistent intake with out of control blood glucose as evidenced by Signs/Symptoms: BMI 16.3 kg/m2 with body wt 50 .3 kg, recent wt loss of 4.4# (3.8% body wt). 1. Problem Problem Altered nutrition-related laboratory values related to Etiology possible diet noncompliance or lack of consistent education as evidenced by Signs/Symptoms: fasting glucose 449 mg/dl today, elevated POC Glucose, Urine Glucose 500H, Urine Ketones >=80H. Malnutrition Alert Interpretation of weight loss Non-Severe up to 5% in 1 month (mod) Is there a minimum of two criteria No selected? Query Text:Check all the applicable criteria. A minimum of two criteria are recommended for diagnosis of either severe or non-severe malnutrition. Malnutrition Related to Morbid Obesity Malnutrition related to morbid obesity No Intervention/Recommendation Recommendations by RD Dietary Education by RD1 Comments 1. Continue with current diet as it is adequate to meet estimated nutritional needs while promoting glycemic control. 2. RD educated pt on consistent carbohydrate diet for 6 small meals per day. Pt requested for only hand out. RD emphasized for consistent intake every 2-3 hours. Reinforcement needed. Pt would benefit from outpatient or discharge care/education. Expected Outcomes/Goals Expected Outcomes/Goals 1. Blood glucose will trend towards desired parameters. 2. Gradual wt change towards IBW. Physician Parameters for PEM Normal Weight % <75% (Severe) Body Mass Index (BMI) 16 - 17.9 (Moderate) Serum Albumin (g/dl) 3.1 - 3.4 (Mild) 09/25/16 13:11 Dietitian Notes by Jeanne Duarte Nutrition Note Nutrition Consult and Initial Nutrition Assessment completed by Jeanne Duarte on 09/25/16. Please refer to nutrition assessment under Patient Care tab of EMR. RN Kisha and Nurse Practitioner Anamika Larson aware education was completed. Nutrition Problems: 1. Altered nutrition-related laboratory values related to possible diet noncompliance or lack of consistent education as evidenced by fasting glucose 449 mg/dl today, elevated POC Glucose, Urine Glucose 500H, Urine Ketones >=80H. 2. Underweight related to possible inadequate oral intake or inconsistent intake with out of control blood glucose as evidenced by BMI 16.3 kg/m2 with body wt 50.3 kg, recent wt loss of 4.4# (3.8% body wt). Nutrition Interventions: 1. Continue with current diet as it is adequate to meet estimated nutritional needs while promoting glycemic control. 2. RD educated pt on consistent carbohydrate diet for 6 small meals per day. Pt requested for only hand out. RD emphasized for consistent intake every 2-3 hours. Reinforcement needed. Pt would benefit from outpatient or discharge care/ education. F/U in 2-3 days as High risk, 09/27-09/28. Initialized on 09/25/16 13:11 - END OF NOTE
[2016-09-28] MEDS ORDERED: Lactobacillus Rhamnosus 10 Billion CFU Capsule PO SCH (09:00)
--- NOTE | 2016-09-28 09:54 | Discharge Summary ---
FINAL DIAGNOSES: 1. Diabetic ketoacidosis, which has resolved. 2. Chest pain, which resolved. 3. Hyponatremia, improved. 4. Hypokalemia, improved. HISTORY OF PRESENT ILLNESS: This is a 26-year-old male, who was a direct admission from [facility]. According to the patient, he has a 1-day history of chest pain associated with sore throat. Chest pain is nonradiating and is more centered. The patient states that he had a bit of shortness of breath and also when the patient checked his blood sugar at home, it did not give a specific number, just said it was high. The patient states that he checks his blood sugar level 3 times a day and he was experiencing polyuria and polydipsia. He has been having polyuria, polydipsia; this is nothing new, he has been experiencing this for quite some time. PHYSICAL EXAMINATION: GENERAL: The patient is well developed, well nourished, no acute distress. VITAL SIGNS: Stable. HEENT: Normocephalic, atraumatic. NECK: Supple. No mass. LUNGS: Clear. CARDIOVASCULAR: Regular rhythm. ABDOMEN: Soft, nontender, nondistended. HOSPITAL COURSE: During the hospital stay, the patient was admitted to the ICU Unit. The patient had a consultation with Dr. Vora due to chest pain. The patient's troponin levels were being monitored and it was negative. The patient was also being seen by a dietitian. The patient's glucose levels were being monitored as well. The patient's glucose level stabilized, and for this reason, the patient was stable for discharge. Educated the patient the importance of following up with PCP upon discharge. Also, educated the patient to determine the signs and symptoms of hypo and hyperglycemia. The patient understood and verbalized. CONDITION UPON DISCHARGE: Fair. DISPOSITION: The patient is going home. JOB# [id number]
== END 2016-09-27 15:10 | DRG 420 ==
LOC: ICU 19:00
PROVIDERS: ADMIT Internal Medicine; ATTEND Internal Medicine
DX: E10.10 Type 1 diabetes mellitus with ketoacidosis without coma (principal); E43 Unspecified severe protein-calorie malnutrition; E87.1 Hypo-osmolality and hyponatremia; F17.210 Nicotine dependence, cigarettes, uncomplicated; K21.9 Gastro-esophageal reflux disease without esophagitis; E87.6 Hypokalemia; J45.909 Unspecified asthma, uncomplicated; R07.89 Other chest pain; Z68.1 Body mass index [BMI] 19.9 or less, adult
CPT/HCPCS: 36415-UA; 71010-TC; 80048-TC; 80053-TC; 81001-TC; 82010-TC; 82140-TC; 82607-90; 82746-90; 82948-90; 83036-90; 83735-TC; 84100-TC; 84443-TC; 84484-TC; 85007-TC; 85025-TC; 85027-TC; J1644; J1815; J1956; J2001; J3475; J3480; J3490; J7030; Z7610